=== PATIENT | female | born 1995 | race Caucasian/White ===

== ENCOUNTER 2017-05-12 07:50 | Day surgery (SDC) | payer OTHER ==
[~2017-05-12 07:50] MED LIST: CEFAZOLIN 2 GM/50 ML (PMX) 50 ML IVPB; SOD CHLORIDE 0.9% 1,000 ML IV
[2017-05-12 08:45] LABS: ADD MAN DIFF? NO
[2017-05-12 09:00] LABS: BASOPHILS % 0.4 % (0.0-2.0); EOSINOPHILS % 0.4 % (0.0-7.0); HEMATOCRIT 43.4 % (37.0-47.0); HEMOGLOBIN 14.5 g/dl (12.0-16.0); LYMPHOCYTES # 1.8 10^3/ul (0.8-2.9); LYMPHOCYTES % 17.9 % (15.0-51.0); MEAN CORPUSCULAR HEMOGLOBIN 29.9 pg (29.0-33.0); MEAN CORPUSCULAR HGB CONC 33.4 g/dl (32.0-37.0); MEAN CORPUSCULAR VOLUME 89.5 fl (82.0-101.0); MONOCYTE # 0.6 10^3/ul (0.3-0.9); MONOCYTES % 6.4 % (0.0-11.0); NEUTROPHIL # 7.4 10^3/ul (1.6-7.5); NEUTROPHILS % 74.5 % (39.0-77.0); PLATELET COUNT 299 10^3/UL (140-415); RED BLOOD COUNT 4.85 10^6/ul (4.20-5.40); RED CELL DISTRIBUTION WIDTH 14.2 % (11.5-14.5)
[2017-05-12 09:00] LABS: WHITE BLOOD COUNT 9.9 10^3/ul (4.8-10.8)
[2017-05-12 09:10] LABS: INR 0.94; PROTIME 12.7 Sec (11.9-14.9)
[2017-05-12 09:11] LABS: PARTIAL THROMBOPLASTIN TIME 29.9 Sec (25.0-35.0)
[2017-05-12 09:14] LABS: ALANINE AMINOTRANSFERASE 26 IU/L (13-69); ALBUMIN 4.6 g/dl (3.3-4.9); ALBUMIN/GLOBULIN RATIO 1.27; ALKALINE PHOSPHATASE 91 IU/L (42-121); ANION GAP 19 (8-16); ASPARTATE AMINO TRANSFERASE 24 IU/L (15-46); BILIRUBIN,INDIRECT 0.2 mg/dl (0-1.1); BILIRUBIN,TOTAL 0.2 mg/dl (0.2-1.3); CARBON DIOXIDE 29 mmol/L (21-31); CHLORIDE 102 mmol/L (97-110); GLUCOSE 94 mg/dl (70-220); TOTAL PROTEIN 8.2 g/dl (6.1-8.1)
[2017-05-12 09:23] LABS: BLOOD UREA NITROGEN 12 mg/dl (7-20); CREATININE 0.65 mg/dl (0.44-1.00); POTASSIUM 4.2 mmol/L (3.5-5.1)
[2017-05-12 09:24] LABS: SODIUM 146 mmol/L (135-144)
[2017-05-12] MEDS ORDERED: NEOSTIGMINE 3 MG/3 ML SYRINGE (11:00)
[2017-05-12] MEDS ORDERED: PROPOFOL 20 ML (11:00)
[2017-05-12] MEDS ORDERED: ROCURONIUM 50 MG INJ (11:00)
[2017-05-12] MEDS ORDERED: CEFAZOLIN 1 GM INJ (11:00)
[2017-05-12] MEDS ORDERED: MIDAZOLAM 1 MG/ML 2 ML INJ (11:00)
[2017-05-12] MEDS ORDERED: GLYCOPYRROLATE 0.4 MG INJ (11:00)
[2017-05-12] MEDS ORDERED: ONDANSETRON 4 MG INJ (11:01)
[2017-05-12] MEDS ORDERED: DEXAMETHASONE 4 MG/ML 1 ML INJ (11:01)
[2017-05-12] MEDS ORDERED: FENTAnyl 50 MCG/ML VIAL (11:01)
[2017-05-12] MEDS ORDERED: SUGAMMADEX SODIUM 200 MG/2 ML VIAL IV (11:38)
[2017-05-12] MEDS ORDERED: HYDROCODONE/APAP (7.5/325) TAB PO (12:00)
== END 2017-05-12 13:35 | disposition home or self-care (01) ==
LOC: SDS 07:50
DX: D24.1 Benign neoplasm of right breast (principal)
CPT/HCPCS: 19120; 80053; 85025; 85610; 85730; 88307